=== PATIENT | female | born 2000 | race Caucasian/White ===

== ENCOUNTER 2023-12-29 03:55 | Emergency (ER) | payer OTHER ==
[2023-12-29 04:20] VITALS: BMI 30.9
[2023-12-29 05:17] LABS: CALCIUM 9.2 mg/dL (8.5-10.1)
[2023-12-29 05:18] LABS: ALBUMIN 3.5 g/dl (3.4-5.0); BLOOD UREA NITROGEN 10.3 mg/dL (7-18); MAGNESIUM 1.6 mg/dL (1.8-2.4)
[2023-12-29 05:20] LABS: CREATININE 0.6 mg/dL (0.55-1.3)
[2023-12-29 05:23] LABS: BILIRUBIN,TOTAL 0.3 mg/dL (0.2-1); TOT PROT 7.3 g/dl (6.4-8.2)
[2023-12-29 05:26] LABS: LACTIC ACID 2.4 mmol/L (0.4-2.0)
[2023-12-29] MEDS: LACTATED RINGERS SOLUTION 1000 ML INFUS.BAG IV ONE (05:49)
[2023-12-29] MEDS ORDERED: MAGNESIUM SULFATE IN WATER 2 GM/50 ML IVPB IVPB ONE (05:56)
[2023-12-29] MEDS: MAGNESIUM SULF 50% (8.12 MEQ/2 ML-1 GM VIAL) IVPB ONE (05:59)
[2023-12-29 06:15] VITALS: BP 137/97; PULSE 101; TEMP 97.5
[2023-12-29 06:17] VITALS: RESP 22
[2023-12-29 06:31] LABS: BASO % 0.4 % (0-2.0); HEMATOCRIT 42.4 % (32.4-45.2); HEMOGLOBIN 14.3 GM/dL (10.7-15.3); LYMPH % 26.1 % (8-40); MCH 27.8 pg (25.7-33.7); MCHC 33.8 g/dl (32.0-36.0); MEAN CELL VOLUME 82.4 fl (80-96); MEAN PLT VOLUME 8.9 fl (7.5-11.1); MONO % 4.5 % (3.8-10.2); PLATELET COUNT 351 10^3/uL (134-434); RBC 5.15 M/mm3 (3.60-5.2); RDW 14.3 % (11.6-15.6)
== END 2023-12-29 06:50 | disposition home or self-care (01) ==
LOC: JER 03:55
PROC: 3E033NZ Introduction of Analgesics, Hypnotics, Sedatives into Peripheral Vein, Percutaneous Approach (ICD-10-PCS; principal; 2023-12-29)
DX: R56.9 Unspecified convulsions (principal); Z20.822 Contact with and (suspected) exposure to COVID-19
CPT/HCPCS: 0241U-QW; 36415; 70450-TC; 71045-TC-FY; 80053; 82962; 83605; 83735; 84703; 85025; 86850; 86900; 86901; 93005; 93010; 99285-25